=== PATIENT | female | born 1960 | race Caucasian/White ===

== ENCOUNTER → 2018-09-28 | Outpatient (CLI) | payer OTHER ==
[~2018-09-28] MED LIST: FLEXERIL10 MG PO; NKHM; PEN-VEE K500 MG PO; ROBAXIN750 MG PO; TRAMADOL HCL50 MG PO; VICODIN 500 MG-1 TAB PO; VICODIN ES 7501 TAB PO; VOLTAREN75 MG PO
[2018-09-28 10:46] LABS: HEMATOCRIT 47.4 % (37.0-47.0); HEMOGLOBIN 15.1 g/dl (12.0-16.0); MEAN CORPUSCULAR HGB 30.3 pg (27.0-31.0); MEAN CORPUSCULAR HGB CONC 31.9 g/dl (33.0-37.0); PLATELET COUNT AUTOMATED 276 10*3/uL (130-400); RED BLOOD COUNT 4.99 10*6/uL (4.10-5.10); RED CELL DISTRI WIDTH 12.7 % (0-14.5); WHITE BLOOD COUNT 6.2 10*3/uL (4.8-10.8)
[2018-09-28 10:47] LABS: BASO % 0.5 % (0.0-1.0); EOS # 0.2 10*3/uL (0.0-0.4); EOS % 2.8 % (1.0-4.0); LYMPH # 3.3 10*3/uL (1.3-4.4); LYMPH % 52.6 % (27.0-41.0); MEAN PLATELET VOLUME 10.3 fl (9.6-12.3); MONO # 0.6 10*3/uL (0.1-1.0); MONO % 9.5 % (3.0-9.0); NEUT # 2.1 10*3/uL (2.3-7.9); NEUT % 34.3 % (47.0-73.0)
[2018-09-28 11:13] LABS: ALBUMIN 3.7 gm/dl (3.1-4.5); ALKALINE PHOSPHATASE 80 U/L (45-117); BUN 17 mg/dl (7-24); CHLORIDE 107 mmol/L (98-107); CHOLESTEROL 193 mg/dL (<200); CREATININE 1.11 mg/dL (0.55-1.02); HDL CHOLESTEROL 73 mg/dl (40-60); LDL CHOLESTEROL 92 mg/dL (9-159); POTASSIUM 4.5 mmol/L (3.5-5.1); SGOT/AST 14 IU/L (3-35); SGPT/ALT 22 U/L (12-78); SODIUM 141 mmol/L (136-145); TOTAL PROTEIN 7.9 gm/dL (6.4-8.2); TRIGLYCERIDES 140 mg/dl (<150); VLDL CHOLESTEROL 28 mg/dL (6-40)
[2018-09-28 11:14] LABS: FREE T4 0.96 ng/dl (0.76-1.46)
[2018-09-28 11:34] LABS: VITAMIN D, 25-HYDROXY 19.5 ng/mL (30-100)
== END | disposition home or self-care (01) ==
LOC: LAB 10:08 → MAMMO 10:40
PROVIDERS: Internal Medicine
DX: Z12.31 Encounter for screening mammogram for malignant neoplasm of breast (principal); Z13.220 Encounter for screening for lipoid disorders; Z13.1 Encounter for screening for diabetes mellitus; M85.88 Other specified disorders of bone density and structure, other site; M47.897 Other spondylosis, lumbosacral region; M51.26 Other intervertebral disc displacement, lumbar region; Z78.0 Asymptomatic menopausal state

== ENCOUNTER → 2019-04-19 | Outpatient (CLI) | payer OTHER | END | disposition home or self-care (01) | LOC: CARD 07:29 → US 05-01 13:00 | DX: R55 Syncope and collapse (principal) ==

== ENCOUNTER → 2019-06-12 | Outpatient (CLI) | payer OTHER | END | disposition home or self-care (01) | LOC: US 05-17 16:00 | DX: I65.23 Occlusion and stenosis of bilateral carotid arteries (principal); F17.200 Nicotine dependence, unspecified, uncomplicated ==

== ENCOUNTER → 2019-10-06 | Outpatient (CLI) | payer OTHER | END | disposition home or self-care (01) | LOC: US 14:00 | DX: N18.3 Chronic kidney disease, stage 3 (moderate) (principal); R05 Cough ==

== ENCOUNTER → 2020-07-02 | Outpatient (CLI) | payer OTHER ==
[2020-07-02 10:29] LABS: HEMATOCRIT 46.2 % (37.0-47.0); MEAN CORPUSCULAR HGB 29.7 pg (27.0-31.0); MEAN CORPUSCULAR HGB CONC 32.3 g/dl (33.0-37.0); RED BLOOD COUNT 5.02 10*6/uL (4.10-5.10); WHITE BLOOD COUNT 5.5 10*3/uL (4.8-10.8)
[2020-07-02 10:30] LABS: BASO % 0.5 % (0.0-1.0); EOS # 0.1 10*3/uL (0.0-0.4); EOS % 2.6 % (1.0-4.0); LYMPH # 2.1 10*3/uL (1.3-4.4); LYMPH % 37.5 % (27.0-41.0); MEAN PLATELET VOLUME 10.3 fl (9.6-12.3); MONO # 0.5 10*3/uL (0.1-1.0); MONO % 9.1 % (3.0-9.0); NEUT # 2.8 10*3/uL (2.3-7.9); NEUT % 50.1 % (47.0-73.0); PLATELET COUNT AUTOMATED 245 10*3/uL (130-400); RED CELL DISTRI WIDTH 12.5 % (0-14.5)
[2020-07-02 10:49] LABS: ALBUMIN 3.9 gm/dl (3.1-4.5); ALKALINE PHOSPHATASE 77 U/L (45-117); BUN 14 mg/dl (7-24); CHLORIDE 110 mmol/L (98-107); CHOLESTEROL 213 mg/dL (<200); CREATININE 1.07 mg/dL (0.55-1.02); FREE T4 0.99 ng/dl (0.76-1.46); HDL CHOLESTEROL 56 mg/dl (40-60); LDL CHOLESTEROL 113 mg/dL (9-159); POTASSIUM 3.8 mmol/L (3.5-5.1); SGOT/AST 15 IU/L (3-35); SGPT/ALT 18 U/L (12-78); SODIUM 144 mmol/L (136-145); TOTAL PROTEIN 7.6 gm/dL (6.4-8.2); TRIGLYCERIDES 222 mg/dl (<150); VLDL CHOLESTEROL 44 mg/dL (6-40)
[2020-07-02 10:57] LABS: VITAMIN D, 25-HYDROXY 21.3 ng/mL (30-100)
== END | disposition home or self-care (01) ==
LOC: LAB 09:43 → CT 07-03 13:00
PROVIDERS: ATTEND Internal Medicine
DX: I12.9 Hypertensive chronic kidney disease with stage 1 through stage 4 chronic kidney disease, or unspecified chronic kidney disease (principal); N18.30 Chronic kidney disease, stage 3 unspecified; R10.9 Unspecified abdominal pain; E55.9 Vitamin D deficiency, unspecified; Z12.31 Encounter for screening mammogram for malignant neoplasm of breast; Z13.220 Encounter for screening for lipoid disorders; Z00.00 Encounter for general adult medical examination without abnormal findings; Z13.1 Encounter for screening for diabetes mellitus; Z90.49 Acquired absence of other specified parts of digestive tract

== ENCOUNTER → 2020-09-02 | Outpatient (CLI) | payer OTHER | END | disposition home or self-care (01) | LOC: COVID19 11:17 | PROVIDERS: ATTEND Internal Medicine Gastroenterology | DX: Z01.812 Encounter for preprocedural laboratory examination (principal); Z20.822 Contact with and (suspected) exposure to COVID-19 ==

== ENCOUNTER → 2021-03-21 | Outpatient (CLI) | payer OTHER | END | disposition home or self-care (01) | LOC: CT 10:27 | PROVIDERS: ATTEND Internal Medicine | DX: R22.1 Localized swelling, mass and lump, neck (principal) ==

== ENCOUNTER → 2021-12-26 | Outpatient (CLI) | payer OTHER | END | disposition home or self-care (01) | LOC: RAD 08:57 | PROVIDERS: ATTEND Specialist | DX: R13.10 Dysphagia, unspecified (principal); K21.9 Gastro-esophageal reflux disease without esophagitis ==

== ENCOUNTER → 2022-04-01 | Outpatient (CLI) | payer OTHER | END | disposition home or self-care (01) | LOC: COVID19 03-31 16:05 | PROVIDERS: ATTEND Internal Medicine | DX: Z20.822 Contact with and (suspected) exposure to COVID-19 (principal) ==

== ENCOUNTER 2022-05-12 09:19 | Emergency (ER) | payer OTHER ==
[~2022-05-12] VITALS: Ht 170.1 cm; Wt 59.0 kg
[2022-05-12] MEDS ORDERED: ATARAX,VISTARIL50 MG PO (10:34)
[2022-05-12] MEDS ORDERED: PREDNISONE20 M1 PO (10:34)
== END 2022-05-12 10:37 | disposition home or self-care (01) ==
LOC: ED 09:19
DX: R21 Rash and other nonspecific skin eruption (principal); F17.200 Nicotine dependence, unspecified, uncomplicated; Z90.710 Acquired absence of both cervix and uterus; Z88.5 Allergy status to narcotic agent

== ENCOUNTER → 2022-11-30 | Outpatient (CLI) | payer OTHER ==
[~2022-11-30] MED LIST changes: +ATARAX,VISTARIL50 MG PO; +PREDNISONE20 M1 PO
== END | disposition home or self-care (01) ==
LOC: MAMMO 11-25 11:30 → LAB 01:11 → MAMMO 09:30 → LAB 09:30
PROVIDERS: ATTEND Internal Medicine
DX: Z12.31 Encounter for screening mammogram for malignant neoplasm of breast (principal)

== ENCOUNTER → 2022-12-04 | Outpatient (CLI) | payer OTHER ==
[2022-12-04 13:28] LABS: BASO % 0.4 % (0.0-1.0); EOS # 0.1 10*3/uL (0.0-0.4); EOS % 1.5 % (1.0-4.0); LYMPH # 2.1 10*3/uL (1.3-4.4); LYMPH % 31.2 % (27.0-41.0); MEAN CELL VOLUME 93.8 fl (81.0-99.0); MEAN PLATELET VOLUME 9.7 fl (9.6-12.3); MONO # 0.6 10*3/uL (0.1-1.0); MONO % 8.5 % (3.0-9.0); NEUT # 3.9 10*3/uL (2.3-7.9); PLATELET COUNT AUTOMATED 285 10*3/uL (130-400); RED BLOOD COUNT 5.33 10*6/uL (4.10-5.10); RED CELL DISTRI WIDTH 12.9 % (0-14.5); WHITE BLOOD COUNT 6.7 10*3/uL (4.8-10.8)
[2022-12-04 14:21] LABS: VITAMIN D, 25-HYDROXY 33.2 ng/mL (30-100)
[2022-12-04 14:22] LABS: ALKALINE PHOSPHATASE 85 U/L (46-116); BUN 14 mg/dl (9-23); CHLORIDE 104 mmol/L (98-107); CHOLESTEROL 190 mg/dL (<200); FREE T4 1.11 ng/dl (0.89-1.76); LDL CHOLESTEROL 109 mg/dL (9-159); POTASSIUM 3.7 mmol/L (3.4-5.1); SGPT/ALT 17 U/L (10-49); THYROID STIM HORMONE (HS) 1.212 uIU/ml (0.550-4.780); TOTAL PROTEIN 7.8 gm/dL (6.0-8.0); TRIGLYCERIDES 70 mg/dl (<150)
== END | disposition home or self-care (01) ==
LOC: RAD 11-30 10:00 → LAB 00:38 → RAD 14:00
PROVIDERS: ATTEND Internal Medicine
DX: Z13.0 Encounter for screening for diseases of the blood and blood-forming organs and certain disorders involving the immune mechanism (principal); Z13.1 Encounter for screening for diabetes mellitus; Z13.21 Encounter for screening for nutritional disorder; Z13.228 Encounter for screening for other metabolic disorders; Z13.29 Encounter for screening for other suspected endocrine disorder; Z13.6 Encounter for screening for cardiovascular disorders; Z13.89 Encounter for screening for other disorder; Z13.9 Encounter for screening, unspecified; I12.9 Hypertensive chronic kidney disease with stage 1 through stage 4 chronic kidney disease, or unspecified chronic kidney disease; N18.30 Chronic kidney disease, stage 3 unspecified; M85.88 Other specified disorders of bone density and structure, other site

== ENCOUNTER 2022-12-28 11:38 | Emergency (ER) | payer OTHER ==
[~2022-12-28] VITALS: Ht 170.1 cm; Wt 54.4 kg
[2022-12-28] MEDS ORDERED: CETIRIZINE HYDR10 MG PO (11:45)
[2022-12-28] MEDS ORDERED: AMLODIPINE BES2.5 MG PO (11:45)
[2022-12-28] MEDS ORDERED: [UNRECOGNIZED DRUG - OTHER] PO (11:46)
[2022-12-28] MEDS ORDERED: CALCIUM PO (11:46)
[2022-12-28] MEDS ORDERED: DOCUSATE SOD100 MG PO (11:46)
[2022-12-28] MEDS ORDERED: CELECOXIB200 M1 PO (11:47)
[2022-12-28] MEDS ORDERED: OMEPRAZOLE40 MG PO (11:47)
[2022-12-28] MEDS ORDERED: PRAVASTATIN SOD20 MG PO (11:48)
[2022-12-28] MEDS ORDERED: NORTRIPTYLINE H10 M1 PO (11:48)
[2022-12-28] MEDS ORDERED: VIBRAMYCIN HYC100 MG PO (12:22)
== END 2022-12-28 12:28 | disposition home or self-care (01) ==
LOC: ED 11:38
DX: S20.161A Insect bite (nonvenomous) of breast, right breast, initial encounter (principal); A69.20 Lyme disease, unspecified; K21.9 Gastro-esophageal reflux disease without esophagitis; M19.90 Unspecified osteoarthritis, unspecified site; Z88.5 Allergy status to narcotic agent; Z88.8 Allergy status to other drugs, medicaments and biological substances; Z90.710 Acquired absence of both cervix and uterus; Z98.890 Other specified postprocedural states; W57.XXXA Bitten or stung by nonvenomous insect and other nonvenomous arthropods, initial encounter; Y93.89 Activity, other specified; Y92.89 Other specified places as the place of occurrence of the external cause; Y99.8 Other external cause status

== ENCOUNTER → 2023-03-31 | Outpatient (CLI) | payer OTHER ==
[~2023-03-31] MED LIST changes: +AMLODIPINE BES2.5 MG PO; +CALCIUM PO; +CELECOXIB200 M1 PO; +CETIRIZINE HYDR10 MG PO; +DOCUSATE SOD100 MG PO; +NORTRIPTYLINE H10 M1 PO; +OMEPRAZOLE40 MG PO; +PRAVASTATIN SOD20 MG PO; +VIBRAMYCIN HYC100 MG PO; +[UNRECOGNIZED DRUG - OTHER] PO
== END | disposition home or self-care (01) ==
LOC: LAB 10:18
PROVIDERS: ATTEND Internal Medicine
DX: J84.10 Pulmonary fibrosis, unspecified (principal); M47.814 Spondylosis without myelopathy or radiculopathy, thoracic region; F17.200 Nicotine dependence, unspecified, uncomplicated

== ENCOUNTER → 2023-05-27 | Outpatient (CLI) | payer OTHER | END | disposition home or self-care (01) | LOC: LAB 11:01 | PROVIDERS: ATTEND Internal Medicine | DX: Z13.0 Encounter for screening for diseases of the blood and blood-forming organs and certain disorders involving the immune mechanism (principal); Z13.1 Encounter for screening for diabetes mellitus; Z13.21 Encounter for screening for nutritional disorder; Z13.220 Encounter for screening for lipoid disorders; Z13.228 Encounter for screening for other metabolic disorders; Z13.6 Encounter for screening for cardiovascular disorders; Z13.89 Encounter for screening for other disorder; E55.9 Vitamin D deficiency, unspecified; R79.89 Other specified abnormal findings of blood chemistry; R53.81 Other malaise; E03.9 Hypothyroidism, unspecified ==

== ENCOUNTER → 2023-06-01 | Outpatient (CLI) | payer OTHER | END | disposition home or self-care (01) | LOC: CT 02:58 | PROVIDERS: ATTEND Internal Medicine | DX: J43.2 Centrilobular emphysema (principal); I71.21 Aneurysm of the ascending aorta, without rupture; E04.1 Nontoxic single thyroid nodule; R91.1 Solitary pulmonary nodule ==

== ENCOUNTER → 2023-07-02 | Outpatient (CLI) | payer OTHER ==
[~2023-07-02] MED LIST changes: +LINZESS145 MC1 PO
== END | disposition home or self-care (01) ==
LOC: CARD 03:21
PROVIDERS: ATTEND Internal Medicine
DX: R94.31 Abnormal electrocardiogram [ECG] [EKG] (principal); R07.9 Chest pain, unspecified; R06.02 Shortness of breath

== ENCOUNTER → 2023-11-16 | Outpatient (CLI) | payer OTHER | END | disposition home or self-care (01) | LOC: MRI 02:35 | PROVIDERS: ATTEND Internal Medicine | DX: M47.816 Spondylosis without myelopathy or radiculopathy, lumbar region (principal); M51.26 Other intervertebral disc displacement, lumbar region ==

== ENCOUNTER 2024-06-29 12:57 | Emergency (ER) | payer OTHER ==
[~2024-06-29] VITALS: Ht 170.1 cm; Wt 54.4 kg
[2024-06-29] MEDS ORDERED: VIBRAMYCIN100 MG PO (13:07)
[2024-06-29] MEDS ORDERED: Doxycycline Hyclate 100 MG 2 TAB ED PACK PO SCH (13:10)
== END 2024-06-29 13:11 | disposition home or self-care (01) ==
LOC: ED 12:57
DX: S80.862A Insect bite (nonvenomous), left lower leg, initial encounter (principal); K21.9 Gastro-esophageal reflux disease without esophagitis; M19.90 Unspecified osteoarthritis, unspecified site; Z88.5 Allergy status to narcotic agent; Z91.048 Other nonmedicinal substance allergy status; Z90.710 Acquired absence of both cervix and uterus; Z98.890 Other specified postprocedural states; W57.XXXA Bitten or stung by nonvenomous insect and other nonvenomous arthropods, initial encounter; Y93.89 Activity, other specified; Y92.89 Other specified places as the place of occurrence of the external cause; Y99.8 Other external cause status